=== PATIENT | female | born 1970 | race Caucasian/White ===

== ENCOUNTER → 2023-08-05 07:58 | Outpatient (REF) | payer BC, SELFPAY | LOC: RAD 07:58 | PROVIDERS: ATTENDING PHYSICIAN Internal Medicine Gastroenterology; FAMILY PHYSICIAN Nurse Practitioner | DX: K31.89 Other diseases of stomach and duodenum (principal) | CPT/HCPCS: 78264; A9541 ==

== ENCOUNTER 2023-08-21 06:21 | Day surgery (SDC) | payer BC, SELFPAY ==
[2023-08-21 10:35] VITALS: BMI 23.6
[2023-08-21 10:50] VITALS: BP 94/58
[2023-08-21 11:20] VITALS: BMI 23.6
[2023-08-21 13:15] VITALS: BP 91/56
[2023-08-21 13:17] VITALS: BP 91/56
[2023-08-21 13:30] VITALS: BP 94/62
[2023-08-21 13:45] VITALS: BP 96/68
[2023-08-21 13:54] VITALS: BP 97/59
== END 2023-08-21 14:10 | disposition home or self-care (01) ==
LOC: GI 06:21
PROVIDERS: ATTENDING PHYSICIAN Internal Medicine Gastroenterology
DX: K31.89 Other diseases of stomach and duodenum (principal); K31.7 Polyp of stomach and duodenum
CPT/HCPCS: 43235

== ENCOUNTER → 2023-12-19 12:36 | Outpatient (REF) | payer BC, SELFPAY | LOC: WDC 12:36 | PROVIDERS: ATTENDING PHYSICIAN Nurse Practitioner | DX: Z12.31 Encounter for screening mammogram for malignant neoplasm of breast (principal) | CPT/HCPCS: 77063; 77067 ==

== ENCOUNTER → 2024-12-29 15:56 | Outpatient (REF) | payer BC, SELFPAY | LOC: WDC 15:56 | PROVIDERS: ATTENDING PHYSICIAN Nurse Practitioner | DX: Z12.31 Encounter for screening mammogram for malignant neoplasm of breast (principal) | CPT/HCPCS: 77063; 77067 ==